=== PATIENT | female | born 1970 | race Caucasian/White ===

== ENCOUNTER 2021-07-09 06:40 | Day surgery (SDC) | payer BC ==
[2021-07-09] MEDS ORDERED: Lactated Ringers 1,000 ML IV SCH (07:00)
[2021-07-09] MEDS ORDERED: Propofol 200 MG/20 ML SDV ONE ×3 (07:55→09:01)
[2021-07-09] MEDS ORDERED: fentaNYL 100 MCG/2 ML SDV ONE (07:56)
--- NOTE | 2021-07-13 11:37 | OR ---
PREOPERATIVE DIAGNOSIS: Screening colonoscopy. POSTOPERATIVE DIAGNOSIS: Colon polyps. PROCEDURE PERFORMED: Total flexible colonoscopy with biopsies. ANESTHESIA: MAC anesthesia. COMPLICATIONS: None. BLOOD LOSS: Minimal. FINDINGS: 1. Cecal polyp, 4 mm, cold forceps. 2. Rectosigmoid polyp, 12 mm, hot snare. Start time 0842, cecum time 0846, stop time 0901. BOWEL PREP: Udell class 2. INDICATIONS FOR PROCEDURE: Ms. Vargas is a 51-year-old female who presents for her first screening colonoscopy. She has a maternal uncle who had colon cancer in his 60s. She denies any bloody or dark black stools. DETAILS OF PROCEDURE: Informed consent was obtained. The patient was brought to the procedure room, placed in left lateral decubitus position. MAC anesthesia was induced by Anesthesia colleagues. Colonoscope was introduced into the rectum and advanced all the way to the cecum. The terminal ileum and appendiceal orifice were photographed. The colonoscope was then slowly withdrawn. No pathology was identified except for what is mentioned in the above findings section. A retroflexed view was obtained, and the colonoscope was removed. She was awoken from anesthesia by Anesthesia colleagues without incident. PATHOLOGY: A) Colon, cecum polyp Fragments of sessile serrated adenoma No high-grade dysplasia or malignancy identified. B) Colon, rectosigmoid polyp Tubular adenoma (1.5 cm). Stalk margin negative for adenomatous epithelium. No high-grade dysplasia or malignancy identified. Recommend repeat screening colonoscopy in 3 years. RKM: 07/09/2021 09:06:43 MODL: 07/09/2021 15:11:34 /[id number]
== END 2021-07-09 10:25 | disposition home or self-care (01) ==
LOC: VM.SDS 06:40
PROVIDERS: ATTEND Student in an Organized Health Care Education/Training Program
DX: Z12.11 Encounter for screening for malignant neoplasm of colon (principal); D12.0 Benign neoplasm of cecum; D12.7 Benign neoplasm of rectosigmoid junction; G47.33 Obstructive sleep apnea (adult) (pediatric); F32.9 Major depressive disorder, single episode, unspecified; F41.9 Anxiety disorder, unspecified; N39.3 Stress incontinence (female) (male); E66.9 Obesity, unspecified; Z68.44 Body mass index [BMI] 60.0-69.9, adult; Z80.0 Family history of malignant neoplasm of digestive organs
CPT/HCPCS: 00812; 82947; J2704; J3010; J7120

== ENCOUNTER 2022-03-12 19:41 | Emergency (ER) | payer BC ==
[2022-03-12] MEDS ORDERED: Take Home: Cephalexin 500 MG Cap, 4 Cap Pack PO ONE (20:05)
== END 2022-03-12 20:26 | disposition home or self-care (01) ==
LOC: VM.ED 19:41
DX: L08.9 Local infection of the skin and subcutaneous tissue, unspecified (principal); E66.9 Obesity, unspecified; Z68.39 Body mass index [BMI] 39.0-39.9, adult; Z79.899 Other long term (current) drug therapy; Z79.84 Long term (current) use of oral hypoglycemic drugs
CPT/HCPCS: 99282; 99284; A9270-GY

== ENCOUNTER 2024-08-08 12:26 | Day surgery (SDC) | payer BC ==
[~2024-08-08 12:26] MED LIST: Lactated Ringers 1,000 ML IV SCH
[2024-08-08] MEDS ORDERED: fentaNYL 100 MCG/2 ML SDV ONE (14:11)
[2024-08-08] MEDS ORDERED: Propofol 200 MG/20 ML SDV ONE ×3 (14:11→15:26)
== END 2024-08-08 15:28 | disposition home or self-care (01) ==
LOC: VM.SDS 12:26
PROVIDERS: ATTEND Family Medicine
DX: Z12.11 Encounter for screening for malignant neoplasm of colon (principal); G47.33 Obstructive sleep apnea (adult) (pediatric); F32.0 Major depressive disorder, single episode, mild; F41.9 Anxiety disorder, unspecified; E66.813 Obesity, class 3; Z79.899 Other long term (current) drug therapy; Z79.890 Hormone replacement therapy; Z86.0100 Personal history of colon polyps, unspecified; Z80.0 Family history of malignant neoplasm of digestive organs; Z68.41 Body mass index [BMI] 40.0-44.9, adult
CPT/HCPCS: J2704; J3010